=== PATIENT | male | born 1955 | race Caucasian/White ===

== ENCOUNTER 2020-09-23 07:46 | Outpatient (REF) | payer OTHER, SELFPAY ==
[2020-09-23 10:26] LABS: Anion Gap 12 (12-20); Blood Urea Nitrogen 21 mg/dL (9-16); Calcium 9.9 mg/dL (8.4-10.2); Carbon Dioxide 25 mmol/L (22-29); Chloride 106 mmol/L (96-108); Cholesterol 136 mg/dL; Estimated Glomerular Filt Rate > 60; Glucose Random 130 mg/dL (60-115); HDL Cholesterol 28 mg/dL; LDL Cholesterol Calculated 54 mg/dl; Potassium 4.3 mmol/L (3.3-5.1); Sodium 139 mmol/L (135-145); Triglycerides 273 mg/dL
[2020-09-23 11:09] LABS: Prostate Specific Antigen 0.35 ng/mL (<0.05-4.0)
== END 2020-09-23 07:47 | disposition home or self-care (01) ==
LOC: HO.LAB 07:46
PROVIDERS: PCP Internal Medicine; Visit Provider Internal Medicine
DX: I10 Essential (primary) hypertension (principal); E78.5 Hyperlipidemia, unspecified; Z12.5 Encounter for screening for malignant neoplasm of prostate
CPT/HCPCS: 36415; 80048; 80061; 84153

== ENCOUNTER 2024-09-22 08:59 | Outpatient (AMB) | payer OTHER, MEDICARE, SELFPAY ==
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
--- OUTSIDE RECORDS SUMMARY | 2024-09-22 09:14 | XMS_ITS | Patient Health Record ---
Author Organization [facility] Address [address] [place] [id number] Care Team Providers Care Consulting Software Engineer Name Role Phone Dionte Elliott Jr [phone] Reason For Referral No Information Plan Of Treatment No Information
[2024-09-22 09:18] VITALS: BMI 24.1
== END 2024-09-22 09:23 | disposition home or self-care (01) ==
PROVIDERS: PCP Internal Medicine; Visit Provider Orthopaedic Surgery
DX: M25.311 Other instability, right shoulder (principal)
CPT/HCPCS: 99213

== ENCOUNTER 2024-09-22 09:04 | Outpatient (REF) | payer OTHER, MEDICARE, SELFPAY ==
--- NOTE | ~2024-09-22 | XR_ITS ---
CLINICAL HISTORY: M25.511 - Pain in right shoulder Right shoulder two views Comparison: None provided Findings: No acute fracture or dislocation identified. Degenerative change glenohumeral joint. No radiopaque foreign body noted. Impression: No acute bony abnormality This document has been electronically signed by: Severiano Nair MD on 09/22/2024 19:19:31
== END 2024-09-22 09:05 | disposition home or self-care (01) ==
LOC: HO.HOSX 09:04
PROVIDERS: Visit Provider Orthopaedic Surgery
DX: M25.311 Other instability, right shoulder (principal); M25.511 Pain in right shoulder; M25.561 Pain in right knee
CPT/HCPCS: 73030

== ENCOUNTER → 2024-09-22 09:05 | Outpatient (BNV) | payer OTHER, MEDICARE, SELFPAY | PROVIDERS: Visit Provider Radiology Diagnostic Radiology | DX: M25.511 Pain in right shoulder (principal) | CPT/HCPCS: 73030 ==

== ENCOUNTER → 2024-10-05 07:10 | Outpatient (BNV) | payer MEDICARE, OTHER, SELFPAY | PROVIDERS: Visit Provider Radiology Diagnostic Radiology | DX: M75.111 Incomplete rotator cuff tear or rupture of right shoulder, not specified as traumatic (principal); M75.81 Other shoulder lesions, right shoulder; M19.011 Primary osteoarthritis, right shoulder | CPT/HCPCS: 73221 ==

== ENCOUNTER 2024-10-05 07:17 | Outpatient (REF) | payer MEDICARE, OTHER, SELFPAY ==
--- NOTE | ~2024-10-05 | MR_ITS ---
CLINICAL HISTORY: M25.311 - Other instability, right shoulder MR of the right shoulder without contrast. No prior MR. Findings: There is supraspinatus tendinopathy with thinning of the tendon and a small tear at the insertion of the tendon without retraction. There is moderate distal infraspinatus tendinopathy. The teres minor tendon is intact. There is subscapularis tendinopathy with an ill-defined partial tear. The biceps tendon is intact. Patellofemoral alignment is normal with a small joint effusion. There are mild glenohumeral degenerative changes. There is an old mild hill-Sachs lesion of the humeral head consistent with previous anterior glenohumeral dislocation. There is a probable ill-defined tear of the anterior inferior labrum. There is moderate acromioclavicular DJD. Impression: Supraspinatus tendinopathy with thinning of the tendon and a small tear at the insertion. Moderate infraspinatus tendinopathy. Subscapularis tendinopathy with an ill-defined partial tear. Mild glenohumeral and moderate acromioclavicular DJD. [place]-Sachs lesion of the humeral head. Probable ill-defined tear anterior inferior labrum. This document has been electronically signed by: Chepe Varela MD on 10/06/2024 19:08:03
--- OUTSIDE RECORDS SUMMARY | 2024-10-05 07:19 | XMS_ITS | Patient Health Record ---
Author Organization [facility] Address [address] [place] [id number] Care Team Providers Care Hop Picker Name Role Phone Dionte Elliott Jr Reason For Referral No Information Plan Of Treatment No Information
--- OUTSIDE RECORDS SUMMARY | 2024-10-05 07:19 | XMS_ITS | Clinical Summary ---
Author Organization [facility] Address [address] [place] [phone] Phone Care Team Providers Care Checkroom Chief Name Role Phone Dasia Church MD Primary Care Provider [phone] Allergies No known active allergies Medications aspirin 81 MG EC tablet Take 81 mg by mouth daily. Active lisinopril-hydr oCHLOROthiazide (PRINZIDE,ZESTO RETIC) 20-25 mg per tablet Take 1 tablet by mouth daily. 0 Active atorvastatin (LIPITOR) 40 MG tablet Take 40 mg by mouth daily. 0 Active mupirocin (BACTROBAN) 2 % ointmentIndicat ions:Infection, face Apply topically 3 (three) times a day. 22 g 0 Active Additional Information Patient not taking.Reported on 07/28/2021 lisinopril-hydr oCHLOROthiazide (PRINZIDE,ZESTO RETIC) 10-12.5 mg per tablet Take 1 tablet by mouth daily. 2 Active metoprolol succinate (TOPROL-XL) 25 MG 24 hr tablet Take 25 mg by mouth daily. 2 Active albuterol (PROAIR HFA) 90 mcg/actuation inhaler Inhale 2 puffs into the lungs every 4 (four) hours as needed for wheezing. 18 g 4 Active benzonatate (TESSALON) 100 MG capsule Take 2 capsules (200 mg total) by mouth 3 (three) times a day as needed for cough. 21 capsule 4 Active inhaler spacing device (AEROCHAMBER,BR EATHERITE) Spcr Inhale 1 each into the lungs every 4 (four) hours as needed. 1 each 4 Active Active Problems No known active problems Immunizations Immunization Administration Dates Next Due Influenza Quadrivalent Adjuv anted Preservative Free IM 12/09/2020 Influenza Quadrivalent MDCK Preservative Free IM 12/20/2017 Influenza Quadrivalent Preservative Free IM 11/08,02/18/2017 Tdap 06/02/2021,02/18/2017 Zoster recombinant 03/25/2020,01/08/2020, 020 Social History Tobacco Use Types Packs/Day Years Used Date Smoking Tobacco: Never Smokeless Tobacco: Never Tobacco Cessation:Counseling Given: Not Answered Alcohol Use Standard Drinks/Week Comments No 0 (1 standard drink = 0.6 oz pur e alcohol) Education Answer Date Recorded Are you interested in more education? Not on lazaro e 07/05/2022 Are you concerned about learning? Not on file 07/05/2022 No 07/05/2022 No 07/05/2022 Digital Access Answer Date Recorded No 08/03/2022 No 08/03/2022 Reliable internet access at home? Not on file 08/03/2022 Device with a working camera? Not on file Sex and Gender Information Value Date Recorded Sex Assigned at Not on file Legal Sex Male 9:54 PM EDT Gender Identity Not on file Sexual Orientation Not on file Last Filed Vital Signs Vital Sign Reading Time Taken Comments Blood Pressure 126/79 02/12/2024 2:50 PM EST Pulse 70 02/12/2024 2:50 PM EST Temperature 36.9 C (98.5 F) 02/12/2024 2:50 PM EST Respiratory Rate 17 02/12/2024 2:50 PM EST Oxygen Saturation 98% 02/12/2024 2:50 PM EST Inhaled Oxygen Concentration - - Weight 76.2 kg (168 lb) 04/02/2022 1:57 PM EST p er pt Height 175.3 cm (5' 9 ) 07/28/2021 9:19 AM EDT Body Mass Index 24.81 07/28/2021 9:19 AM EDT Plan of Treatment Health Maintenance Due Date Last Done Comments CREATININE LEVEL 1955 LIPID PANEL 1955 POTASSIUM LEVEL 1955 DEPRESSION SCREENING 1967 HEPATITIS C SCREENING 11/09/1973 COLOGUARD 11/09/2000 FIT TEST 11/09/2000 FOBT 11/09/2000 SIGMOIDOSCOPY 11/09/2000 VIRTUAL COLONOSCOPY 11/09/2000 PNEUMOCOCCAL VACCINES (50+ years) (1 of 1 - PCV) 11/09/2005 COVID-19 VACCINE (2023- season) 2024 11/28/2023, 12/09/2022, 01/19/2022, Additional history exists COLONOSCOPY 08/30/2027 08/29/2017 COLORECTAL CANCER SCREENING 08/30/2027 Adult Td,Tdap Booster 06/03/2031 06/02/2021, 017 ZOSTER VACCINES Completed 03/25/2020, 12/10, 01/06/2020 RSV VACCINE Completed 01/15/2023 SMOKING STATUS SCREENING (Once After 26 Yrs) Completed 02/12/2024 HEPATITIS A VACCINES Aged Out No long er eligible based on patient's age to complete this topic HIB VACCINES Aged Out No longer eligi ble based on patient's age to complete this topic MENINGOCOCCAL VACCINES (ACWY) Aged Out No longer eligible based on patient's age to complete this topic MENINGOCOCCAL VACCINES (B) Aged Out N o longer eligible based on patient's age to complete this topic Medical Devices Implanted Type Area Hand Fretted Instrument Maker Device Identifier Shelf Expiration Date Model / Serial / Lot Cardiac Stent Procedures Procedure Name Priority Date/Time Associated Diagnosis Comments ENDOSCOPY, COLON 08/29/2017 10:3 4 AM EDT from Last 3 Months or Most Recently Relevant to Health Maintenance Results * ENDOSCOPY, COLON (08/29/2017 10:34 AM EDT) Narrative Transcriptions Dafne Walters MD - 08/29/2017 10:34 AM EDT Patient Name: Jaspreet Pastranamo Attending MD:: DAFNE WALTERS MD Procedure Date: 08/29/2017 10:34 AM Date of : 1955 Age: 61 Admit Type: Outpatient Gender: Male Room: [facility] 05 Referring MD: Lisa Stephens MD Exam Type: Colonoscopy Indications: Screening for colorectal malignant neoplasm, Last colonoscopy 10 years ago Medications: Monitored Anesthesia Care Procedure: Informed consent was obtained from the patient after discussion of the indications, limitations,alternatives, benefits, and risks of the procedure. Risksspecifically discussed include but are not limited to medication reactions, missed lesions, bleeding, perforation, orthe need for emergent surgery. Throughout the procedure, the patient's blood pressure, pulse, end-tidal CO2, and oxygen saturations were monitored continuously. The Olympus pediatric variable colonoscope [id number] was introduced through the anus and advanced to thececum, identified by appendiceal orifice and ileocecal valve.The colonoscopy was somewhat difficult due to a tortuous colon. Successful completion of the procedure was aidedby applying abdominal pressure. The patient tolerated the procedure fairly well. The quality of the bowel preparation was good. Complications: No immediate complications. Estimated blood loss:None. Findings: The perianal and digital rectal examinations werenormal. Pertinent negatives include normal sphincter tone. The entire examined colon appeared normal on direct and retroflexion views. Impression: - The entire examined colon is normal on direct and retroflexion views. - No specimens collected. Recommendation: - Repeat colonoscopy in 10 years for screeningpurposes. DAFNE WALTERS MD 08/29/2017 10:57:15 AM This report has been signed electronically. Number of Addenda: 0 Note Initiated On: 08/29/2017 10:34 AM Diagnosis Code(s): --- Professional --- Z12.11, Encounter for screening for malignant neoplasm of colon --- Technical --- Z12.11, Encounter for screening for malignant neoplasm of colon [address] [place] [address] Lisa Stephens MD GI PROCEDURE ORDER BOB Final Result from Last 3 Months or Most Recently Relevant to Health Maintenance Insurance [id number]ION MEDICARE SUPPLEMENT MEDICARE PART A & B [employer] EXTENSION MEDICARE SUPPLEMENT MEDICARE PART A & B [facility] MEDICARE SUPPLEMENT MEDICARE PART A & B [employer] EXTENSION MEDICARE SUPPLEMENT [place]HA RAMOS [id number] MEDICARE PART A & B [employer] EXTENSION MEDICARE SUPPLEMENT MEDICARE PART A & B [facility] EXTENSION MEDICARE SUPPLEMENT MEDICARE PART A & B [facility] MEDICARE SUPPLEMENT [place]HA RAMOS [id number] MEDICARE PART A & B [facility] MEDICARE SUPPLEMENT MEDICARE PART A & B [facility] EXTENSION MEDICARE SUPPLEMENT MEDICARE PART A & B Care Teams Checkroom Chief Relationship Specialty Start Date End Date Dasia Church MD [address] [place] [address] [email or web address] PCP - General Internal Medicine 04/02/22 Additional Source Comments The information contained in this document represents components of the legal health record. It is not the complete legal health record.[facility]
== END 2024-10-05 07:18 | disposition home or self-care (01) ==
LOC: HO.MRI 07:17
PROVIDERS: Visit Provider Orthopaedic Surgery
DX: M25.311 Other instability, right shoulder (principal)
CPT/HCPCS: 73221

== ENCOUNTER 2024-10-19 08:38 | Outpatient (AMB) | payer MEDICARE, OTHER, SELFPAY ==
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
[2024-10-19 08:44] VITALS: BP 156/82; PULSE 53; BMI 23.9
--- OUTSIDE RECORDS SUMMARY | 2024-10-19 08:54 | XMS_ITS | Clinical Summary ---
Author Organization [facility] Address [address] [place] [phone] Phone Care Team Providers Care Commodity Manager Name Role Phone Dasia Church MD Primary Care Provider [phone] [phone] Allergies No known active allergies Medications aspirin [...] this topic Medical Devices Implanted Type Area Systems Lead Device Identifier Shelf Expiration Date Model / [...] 61 Admit Type: Outpatient Gender: Male Room: [facility] 05 Referring MD: Lisa Stephens MD Exam [...] screening for malignant neoplasm of colon [address] [place] [address] Lisa Stephens MD GI PROCEDURE ORDER BOB Final Result from Last 3 Months or Most Recently Relevant to Health Maintenance Insurance [employer] EXTENSION MEDICARE SUPPLEMENT MEDICARE PART A & B [employer] EXTENSION MEDICARE SUPPLEMENT MEDICARE PART A & B [facility] MEDICARE SUPPLEMENT MEDICARE PART A & B [facility] EXTENSION MEDICARE SUPPLEMENT [place]ISHA RAMOS [id number] MEDICARE PART A & B [facility] EXTENSION MEDICARE SUPPLEMENT MEDICARE PART A & B [facility] EXTENSION MEDICARE SUPPLEMENT MEDICARE PART A & B [facility] MEDICARE SUPPLEMENT KENISHA RAMOS [id number] [facility] MEDICARE SUPPLEMENT MEDICARE PART A & B [facility] EXTENSION MEDICARE SUPPLEMENT MEDICARE PART A & B Care Teams Commodity Manager Relationship Specialty Start Date End Date Dasia Church MD [address] [place] [address] [email or web address] PCP - General Internal Medicine 04/02/22 Additional Source Comments The information contained in this document represents components of the legal health record. It is not the complete legal health record.[facility]
--- OUTSIDE RECORDS SUMMARY | 2024-10-19 08:54 | XMS_ITS | Patient Health Record ---
Author Organization [facility] Address [address] [place] [phone] Care Team Providers Care Manager Area Name Role Phone Dionte Elliott Jr Reason For Referral No Information Plan Of Treatment No Information
== END 2024-10-19 09:09 | disposition home or self-care (01) ==
LOC: HO.HOS 08:39
PROVIDERS: Visit Provider Orthopaedic Surgery
DX: M75.41 Impingement syndrome of right shoulder (principal)
CPT/HCPCS: 99214; G2211

== ENCOUNTER → 2024-10-19 08:38 | Outpatient (BNVA) | payer MEDICARE, OTHER, SELFPAY | PROVIDERS: Visit Provider Orthopaedic Surgery | DX: M75.41 Impingement syndrome of right shoulder (principal) | CPT/HCPCS: 99212 ==